=== PATIENT | female | born 1940 | race Caucasian/White ===

== ENCOUNTER → 2017-10-24 | Outpatient (CLI) | payer MEDICARE ==
--- NOTE | 2017-10-24 16:29 | PCVCIMAG ---
APPROVED REPORT Study performed: 10/24/2017 13:29:52 EXAM: Comprehensive 2D, Doppler, and color-flow Echocardiogram Patient Location: Echo lab Status: routine BSA: 1.83 HR: 70 bpmBP: 120/72 mmHg Rhythm: NSR Other Information Study Quality: Adequate Risk Factors: Cardiac Risk Factors: HTN Indications Murmur 2D Dimensions LVEF(%): 56.28 (>50%) IVSd: 10.53 (7-11mm) LVDd: 41.16 mm PWd: 9.02 (7-11mm) LVDs: 29.19 (25-40mm) Left Atrium: 28.86 (27-40mm) Aortic Root: 30.52 mm LV Single Plane 4CH: 54.75 % LV Single Plane 2CH: 57.25 %Marie's LVEF: 56.00 % Biplane EF: 56.3 % Volumes Left Atrial Volume (Systole) Single Plane 4CH: 37.47 mLSingle Plane 2CH: 60.17 mL LA ESV Index: 31.00 mL/m2 Aortic Valve AoV Peak Danyel.: 1.37 m/s AO Peak Gr.: 7.47 mmHgLVOT Max P.85 mmHg LVOT Max V: 0.84 m/s Mitral Valve E/A Ratio: 0.5 MV Decel. Time: 315.51 ms MV E Max Danyel.: 0.51 m/s MV A Danyel.: 0.93 m/s MV PHT: 91.50 ms IVRT: 141.87 ms Pulmonary Valve PV Peak Danyel.: 0.76 m/sPV Peak Gr.: 2.30 mmHg Pulmonary Vein P Vein S: 0.29 m/sP Vein A: 0.33 m/s P Vein D: 0.35 m/sP Vein A Dur.: 121.1 msec P Vein S/D Ratio: 0.83 Tricuspid Valve TR Peak Danyel.: 2.43 m/s TR Peak Gr.: 23.70 mmHg Left Ventricle The left ventricle is normal size. There is normal LV segmental wall motion. There is normal left ventricular wall thickness. Left ventricular systolic function is normal. The left ventricular ejection fraction is within the normal range. LVEF is 55%. Grade I - abnormal relaxation pattern. Right Ventricle The right ventricle is normal size. The right ventricular systolic function is normal. Atria The left atrium size is normal. The right atrium size is normal. Aortic Valve The aortic valve is normal in structure. Mild aortic regurgitation. There is no aortic valvular stenosis. Mitral Valve The mitral valve is normal in structure. Mild mitral regurgitation. No evidence of mitral valve stenosis. Tricuspid Valve The tricuspid valve is normal in structure. Mild to moderate tricuspid regurgitation with PAP of 30 mmHg. Pulmonic Valve The pulmonary valve is normal in structure. There is no pulmonic valvular regurgitation. Great Vessels The aortic root is normal in size. IVC is normal in size and collapses with >50% inspiration Pericardium Trace pericardial effusion without tamponade. There is no pleural effusion. <Conclusion> Left ventricular systolic function is normal. There is normal LV segmental wall motion. LVEF is 55%. Mild diastolic dysfunction The aortic valve is normal in structure. Mild aortic regurgitation. The mitral valve is normal in structure. Mild mitral regurgitation. Mild to moderate tricuspid regurgitation with pulmonary artery pressure of 30 mmHg. Trace pericardial effusion without tamponade.
== END | disposition home or self-care (01) ==
LOC: PCVCIMAG 13:58
PROVIDERS: ATTEND Neuromusculoskeletal Medicine & OMM
DX: I08.3 Combined rheumatic disorders of mitral, aortic and tricuspid valves (principal)
CPT/HCPCS: 93306